=== PATIENT | male | born 1980 | race Caucasian/White ===

== ENCOUNTER 2017-01-13 17:41 | Emergency (ER) | payer OTHER ==
[2017-01-13 18:10] VITALS: BP 129/87
--- NOTE | 2017-01-13 18:26 | ED Physician Documentation ---
Upper Extremity Problem - HISTORIAN Historian: patient - HPI Stated Complaint: lt hand swelling Chief Complaint: Upper Extremity Problem Additional Information: punctured left hand 2 weeks ago with a screwdriver Location: L hand Front/Back of Body, Lg (Color): 1 - erythema 2 - erythema 3 - streaking Onset: days ago (7) Timing: still present, worse Duration: sudden-Onset Recent Injury: Yes Where: home Severity: mild Associated Symptoms: other (none) Exacerbated By: nothing Relieved By: nothing Quality: pain, swelling, tenderness Further Comments: no - ROS CONST: no problems EYES/ENT: none CVS/RESP: none GI/: none MS/SKIN/LYMPH: denies: calf pain, joint pain, rash, swollen glands, leg pain NEURO/PSYCH: denies: headache, fainting, dizziness, anxiety, depression - PAST HX Past History: other (htn) Other History: none Surgeries/Procedures: none Immunizations: referred to PCP Allergies/Adverse Reactions: Allergies Allergy/AdvReac Type Severity Reaction Status Date / Time No Known Allergies Allergy Verified 01/13/17 18:02 Home Medications: Ambulatory Orders Medication Instructions Recorded Cephalexin [Keflex] 500 mg PO BID #28 capsule 01/13/17 Lisinopril [Zestril] 20 mg PO D 01/13/17 Ranitidine HCl [Zantac] 150 mg PO BID 01/13/17 - SOCIAL HX Smoking History: non-smoker Alcohol Use: occasionally Drug Use: none - FAMILY HX Family History: no significant history - VITAL SIGNS Vital Signs: Vital Signs Temp Pulse Resp BP Pulse Ox 98.6 F 107 H 14 129/87 97 01/13/17 17:41 01/13/17 18:37 01/13/17 18:37 01/13/17 18:37 01/13/17 18:37 - REVIEWED ASSESSMENTS Nursing Assessment Reviewed: Yes Vitals Reviewed: Yes Progress - Results/Orders Results/Orders: no testing ordered - Progress Progress: pt. stable entire time in er Critical Care Note - Critical Care Note Total Time (mins): 0 ED Results Lab/Radiology - Lab Results Lab Results: none ordered - Radiology Radiology Impressions: none ordered Upper Extremity Problem - EXAM General Appearance: alert, moderate distress Skin: warm/dry, other (erythema left hand dorsum involving 1st, 2nd, 3rd fingers , around to thenar eminence, streaking up forearm) Shoulder Exam: normal inspection, non-tender, no evidence of injury, normal ROM Elbow/Forearm Exam: normal inspection, non-tender, no evidence of injury, normal ROM Wrist Exam: normal inspection, non-tender, no evidence of injury, normal ROM Hand Exam: laceration (healed evidence of puncture wound base left thumb palmar aspect), soft tissue tenderness (area described above), swelling (area described above) DTR - Upper Extremity: bicep (R): 2+, bicep (L): 2+, tricep (R): 2+, tricep (L) : 2+ Neuro/Tendon: normal sensation, normal motor functions, normal tendon functions EENT: eye inspection normal, ENT inspection normal, pharynx normal, no signs of dehydration, LESLYE, no nystagmus, TM's nml CVS: reg rate & rhythm, heart sounds normal, equal pulses Vascular: no vascular compromise Peripheral: sensation nml, motor nml Central: oriented X3, CN's nml as tested, motor nml, mood/affect nml, cognition normal Respiratory: no resp. distress, breath sounds nml Abdomen: non-tender, no organomegaly, nml bowel sounds Discharge Clincal Impression: Cellulitis Qualifiers: Site of cellulitis: extremity Site of cellulitis of extremity: upper extremity Laterality: left Qualified Code(s): L03.114 - Cellulitis of left upper limb Prescriptions: Cephalexin [Keflex] 500 mg PO BID #28 capsule Referrals: Milka Burciaga FNP [Primary Care Provider] - 2 Days Home Medications: Ambulatory Orders Cephalexin [Keflex] 500 mg PO BID #28 capsule 01/13/17 Lisinopril [Zestril] 20 mg PO D 01/13/17 Ranitidine HCl [Zantac] 150 mg PO BID 01/13/17 Comments: discharged in stable condition on above medication Condition: Stable Disposition: 01 HOME, SELF-CARE Decision to Admit: NO Decision Time: 18:20
== END 2017-01-13 18:27 | disposition home or self-care (01) ==
LOC: ED 17:41
DX: L03.114 Cellulitis of left upper limb (principal)
CPT/HCPCS: 99283